=== PATIENT | male | born 1985 | race Caucasian/White ===

== ENCOUNTER 2025-04-30 11:53 | Emergency (ER) | payer MEDICAID ==
[~2025-04-30] VITALS: Ht 170.2 cm; Wt 85.0 kg
[~2025-04-30 11:53] MED LIST: FERR-63 PO; PANT40TA51 PO
[2025-04-30 12:12] VITALS: BP 123/82; TEMP 36.9; O2SAT 100
[2025-04-30 12:32] VITALS: PULSE 86; RESP 18; O2SAT 100
[2025-04-30 14:54] LABS: BASOPHILS % 1.0 % (0.0-2.0); EOSINOPHILS % 0.5 % (0.0-5.0); HEMATOCRIT. 23.6 % (42.0-52.0); HEMOGLOBIN. 7.8 g/dL (14.0-18.0); LYMPHOCYTES % 25.2 % (20.0-50.0); MEAN PLATELET VOLUME 7.9 fl (7.4-10.4); MONOCYTES % 7.5 % (2.0-8.0); NEUTROPHILS % 65.8 % (40.0-76.0); PLATELET 243 x1000/uL (130-400); RED BLOOD CELL COUNT 2.76 mill/uL (4.7-6.1); RED CELL DISTRIBUTION WIDTH 14.9 % (11.6-14.6)
[2025-04-30 15:04] LABS: INR 0.9
[2025-04-30 15:11] LABS: CREATININE 0.8 mg/dL (0.6-1.3)
[2025-04-30 15:12] LABS: ETHANOL BLOOD 127 mg/dL (<10); UREA NITROGEN BLOOD 8 mg/dL (9-23)
[2025-04-30 15:14] LABS: ASPARTATE AMINOTRANSFERASE 33 IU/L (<34); BILIRUBIN DIRECT 0.3 mg/dL (<=3.0); BILIRUBIN TOTAL 1.0 mg/dL (0.1-1.0); PROTEIN TOTAL 6.6 g/dL (6.0-8.3)
[2025-04-30] MEDS ORDERED: IOHEXOL-350 100 ML BOTTLE ONE (23:41)
== END 2025-04-30 16:35 | disposition left against medical advice (07) ==
LOC: ER 11:53 → CMPBEDREQ 05-01 07:34
DX: D64.9 Anemia, unspecified (principal); F10.129 Alcohol abuse with intoxication, unspecified; K62.5 Hemorrhage of anus and rectum; Z53.29 Procedure and treatment not carried out because of patient's decision for other reasons; Y90.6 Blood alcohol level of 120-199 mg/100 ml
CPT/HCPCS: 80076; 80048; 80320; 85025; 85610; 85730; 86850; 86900; 86901; 36415; 74174; 99285; Q9967; Z7610; G0480